=== PATIENT | male | born 1990 | race Caucasian/White ===

== ENCOUNTER 2021-11-02 16:36 | Emergency (ER) | payer OTHER, SELFPAY ==
--- NOTE | ~2021-11-02 | XR_ITS ---
EXAMINATION: XR elbow RT min 3V EXAM DATE: 11/02/2021 20:30 INDICATION: Fall X 1 Wk Ago,Red Swelling Pain In Rt Elbow. Initial encounter. TECHNIQUE: Right elbow frontal, lateral with flexion, and oblique projections obtained and reviewed. There is no prior study for comparison. FINDINGS: Right elbow anterior humeral line intact. There is swelling over the posterior aspect of the elbow, could be olecranon bursitis. Possible elbow joint effusion. No acute fracture line is iden tified. No dislocation. IMPRESSION: 1. Posterior swelling, possible olecranon bursitis. 2. Possible joint effusion. Reviewed, dictated and finalized at location [facility]. [employer]
[2021-11-02 17:12] VITALS: BP 147/91; PULSE 110; RESP 18; TEMP 36.9; O2SAT 99
[2021-11-02 19:30] VITALS: BP 140/89; PULSE 104; RESP 18; TEMP 37.1; O2SAT 99
[2021-11-02 20:00] VITALS: BP 150/76; PULSE 90; RESP 18; O2SAT 96
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
[2021-11-02] MEDS: CLINDAMYCIN 900 MG/D5W 50 ML 900 MG/50 ML PIGGYBACK 50 MG IVPB (22:44)
[2021-11-02 23:44] VITALS: BP 141/73; PULSE 94; RESP 18; O2SAT 99
== END 2021-11-02 23:53 | disposition home or self-care (01) ==
PROVIDERS: Emergency Provider Emergency Medicine; PCP Nurse Practitioner Family
DX: L03.113 Cellulitis of right upper limb (principal); M71.9 Bursopathy, unspecified
CPT/HCPCS: 73080; 96365; 99284

== ENCOUNTER 2022-01-27 19:20 | Observation (INO) | payer OTHER, SELFPAY ==
[2022-01-27] VITALS (7 sets, daily range): BP systolic 129–143; BP diastolic 83–93; PULSE 68–85; RESP 14–22; TEMP 36.7–37.4; O2SAT 95–100; BMI 25.0
--- NOTE | ~2022-01-27 | CT_ITS ---
EXAMINATION: CT brain wo con DATE: 01/28/2022 12:52 INDICATION: Agitation, cognitive impairment, destructive behavior. TECHNIQUE: Computed tomography (CT) of the head was performed without intravenous contrast. The mA wa s adjusted according to patient size. Iterative reconstruction technique was employed. Exam dose: 60 5.33 mGy-cm total exam DLP. COMPARISON: None FINDINGS: Examination is limited by motion artifact. Moderate cerebral volume loss. Multiple old infarcts are noted including left temporal lobe, posteromedial left occipital lobe and p arasagittal left frontal and parietal lobes Status post left craniotomy. No intracranial mass lesion or hemorrhage or recent cerebrovascular accident is evident. No midline s hift or mass effect effect. No subdural or epidural hematoma. No orbital mass lesion is evident. Included paranasal sinuses and the mastoid air cells are normally developed and aerated. 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 Reviewed, dictated and finalized at location [facility].
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
[2022-01-27 20:50] LABS: Basophils Absolute Auto 0.1 K/mm3 (0.0-0.1); Basophils Percent Auto 0.7 % (0.2-1.2); Eosinophils Absolute Auto 0.1 K/mm3 (0-0.3); Eosinophils Percent Auto 0.7 % (0-4.4); Hematocrit 42.6 % (42.0-52.0); Hemoglobin 13.9 g/dL (14.0-18.0); Immature Granulocyte Absolute 0.01 K/mm3 (0.00-0.031); Immature Granulocyte Percent A 0.1 % (0-0.5); Lymphocytes Absolute Auto 3.41 K/mm3 (0.9-3.2); Lymphocytes Percent Auto 48.9 % (18.3-44.2); Mean Corpuscular HGB Conc 32.6 g/dl (32-36); Mean Corpuscular Volume 88.9 fl (80-100); Mean Platelet Volume 9.4 fl (7.4-10.4); Monocytes Absolute Auto 0.5 K/mm3 (0.1-0.6); Monocytes Percent Auto 7.6 % (2.6-8.5); Neutrophils Absolute Auto 2.9 K/mm3 (1.3-6.7); Platelet Count Result 184 k/mm3 (150-375); Red Blood Count 4.79 M/mm3 (4.6-6.20); Red Cell Distribution Width 12.2 % (11.5-14.5)
[2022-01-27 20:52] LABS: Add Urine Microscopic? NO; Appearance Urine Clear (Clear); Bilirubin Urine Negative (Negative); Blood Urine Negative (Negative); Color Urine Straw (Yellow); Glucose Urine UA Negative (Negative); Ketones Urine Negative (Negative); Leukocyte Esterase Ur Negative LEU/UL (Negative); Nitrate Urine Negative (Negative); Protein Urine Negative (Negative); Specific Grav Ur 1.011 (1.001-1.035); Urobilinogen Urine Negative mg/dL (<2.0)
[2022-01-27 20:59] LABS: Alanine Aminotransferase 24 U/L (4-50); Albumin Level 4.1 g/dL (3.5-5.1); Alkaline Phosphatase 69 U/L (38-126); Anion Gap 6 mmol/L (8-16); Aspartate Amino Transferase 30 U/L (17-59); Bilirubin,Total 0.1 mg/dL (0.2-1.3); Blood Urea Nitrogen 17 mg/dL (9-20); Calcium 8.7 mg/dL (8.4-10.2); Carbon Dioxide 28 mmol/L (22-30); Chloride 108 mmol/L (98-107); Estimated CRCL calculation 135 ml/min; Estimated Glomerular Filt Rate > 60; Glucose 110 mg/dL (65-110); Potassium 3.4 mmol/L (3.4-5.0); Sodium 142 mmol/L (137-145)
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
--- NOTE | 2022-01-27 22:00 | PC.NURSE ---
EDER verbal order to not place IV due to no medical need. management information systems director made aware. Jyoti Roach RN made aware.
[2022-01-28 06:00] VITALS: BP 137/86; PULSE 71; RESP 16; TEMP 37.1; O2SAT 98
[2022-01-28] MEDS: SERTRALINE HCL 50 MG TABLET 100 MG PO (08:03)
[2022-01-28] MEDS: MULTIVITAMINS THERAPEUTIC TAB (*BKC) 1 TABLET PO (08:04)
[2022-01-28 08:14] VITALS: O2SAT 99
[2022-01-28] MEDS: ACETAMINOPHEN 325 MG TABLET 650 MG PO (08:28)
[2022-01-28] MEDS: DIVALPROEX SODIUM DR 250 MG TABEC 500 MG PO ×2 (08:29→16:57)
--- NOTE | 2022-01-28 10:30 | PCOTNOTE ---
Spoke with hospitalist and nursing, who requested canceling of orders Pt. is at baseline and does not require OT/PT services at this level of care.
--- NOTE | 2022-01-28 11:43 | ECG_ITS ---
Measurements Intervals [place] Rate: 63 P: 62 ME: 168 QRS: -26 QRSD: 106 T: 54 QT: 408 QTc: 419 Interpretive Statements SINUS RHYTHM WITH SINUS ARRHYTHMIA LEFT AXIS DEVIATION [QRS AXIS < -20] BORDERLINE ECG NO PREVIOUS ECG AVAILABLE FOR COMPARISON Electronically Signed On 01-28-2022 12:53:14 CDT by Howard Crooks M.D.
[2022-01-28 12:04] LABS: Cholesterol 149 mg/dL (0-200); HDL Direct 25 mg/dL; Triglycerides 181 mg/dL (<150)
[2022-01-28 12:15] LABS: LDL Cholesterol Direct 115 mg/dL
[2022-01-28 12:22] LABS: Rapid Plasma Reagin Non-Reactive (NonReactive)
[2022-01-28 12:24] LABS: Vitamin D 25 Hydroxy 60.7 ng/mL
[2022-01-28 12:36] LABS: Hepatitis B Surface Antigen Negative (Negative)
[2022-01-28 12:42] LABS: HAV RESULT Negative (Negative); Hepatitis B Core IgM Result Negative (Negative)
[2022-01-28 12:45] LABS: HIV 1/2 Ab P24 Ag Result Negative (Negative)
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
[2022-01-28 12:55] LABS: Hepatitis C Virus Antibody Reactive (Negative)
[2022-01-28 13:11] LABS: Folic Acid 15.8 ng/mL (2.76->20)
[2022-01-28 14:00] VITALS: BP 128/91; PULSE 85; RESP 18; TEMP 36.9; O2SAT 97
[2022-01-28] MEDS: traZODone HCL 50 MG TABLET 150 MG PO (20:57)
[2022-01-28 21:25] VITALS: BP 134/89; PULSE 75; RESP 18; TEMP 36.5; O2SAT 96
[2022-01-29 05:54] VITALS: BP 130/75; PULSE 67; RESP 18; TEMP 36.1; O2SAT 98
[2022-01-29] MEDS: DIVALPROEX SODIUM DR 250 MG TABEC 500 MG PO ×2 (08:55→16:27)
[2022-01-29] MEDS: SERTRALINE HCL 50 MG TABLET 100 MG PO (08:55)
[2022-01-29] MEDS: MULTIVITAMINS THERAPEUTIC TAB (*BKC) 1 TABLET PO (08:56)
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
[2022-01-29 13:53] VITALS: O2SAT 97
[2022-01-29 14:00] VITALS: BP 130/88; PULSE 89; RESP 18; TEMP 36.3; O2SAT 95
[2022-01-29] MEDS: traZODone HCL 50 MG TABLET 150 MG PO (20:33)
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
[2022-01-29 21:30] VITALS: BP 133/85; PULSE 73; RESP 18; TEMP 36.8; O2SAT 98
[2022-01-29] MEDS: ACETAMINOPHEN 325 MG TABLET 650 MG PO (21:33)
[2022-01-29] MEDS: OLANZapine 5 MG TABLET PO (21:43)
[2022-01-30 05:46] VITALS: BP 128/91; PULSE 72; RESP 18; TEMP 36.4; O2SAT 98
[2022-01-30] MEDS: IBUPROFEN 400 MG TABLET PO (06:08)
[2022-01-30 07:04] LABS: Valproic Acid 51.6 ug/mL (50-120)
[2022-01-30] MEDS: DIVALPROEX SODIUM DR 250 MG TABEC 500 MG PO ×2 (09:09→16:44)
[2022-01-30] MEDS: MULTIVITAMINS THERAPEUTIC TAB (*BKC) 1 TABLET PO (09:09)
[2022-01-30] MEDS: SERTRALINE HCL 50 MG TABLET 100 MG PO (09:09)
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
[2022-01-30 12:40] LABS: Anion Gap 6 mmol/L (8-16); Blood Urea Nitrogen 16 mg/dL (9-20); Calcium 8.8 mg/dL (8.4-10.2); Carbon Dioxide 32 mmol/L (22-30); Chloride 104 mmol/L (98-107); Estimated CRCL calculation 121 ml/min; Estimated Glomerular Filt Rate > 60; Glucose 65 mg/dL (65-110); Potassium 3.8 mmol/L (3.4-5.0); Sodium 142 mmol/L (137-145)
[2022-01-30 14:00] VITALS: BP 126/82; PULSE 74; RESP 18; TEMP 37; O2SAT 96
[2022-01-30] MEDS: traZODone HCL 50 MG TABLET 150 MG PO (20:10)
[2022-01-30] MEDS: ACETAMINOPHEN 325 MG TABLET 650 MG PO (20:11)
[2022-01-30] MEDS: OLANZapine 5 MG TABLET PO (20:11)
[2022-01-30 22:00] VITALS: BP 116/86; PULSE 76; RESP 18; TEMP 36.9; O2SAT 96
[2022-01-31 06:00] VITALS: BP 138/82; PULSE 53; RESP 16; TEMP 36; O2SAT 99
[2022-01-31] MEDS: SERTRALINE HCL 50 MG TABLET 100 MG PO (09:17)
[2022-01-31] MEDS: MULTIVITAMINS THERAPEUTIC TAB (*BKC) 1 TABLET PO (09:17)
[2022-01-31] MEDS: DIVALPROEX SODIUM DR 250 MG TABEC 500 MG PO ×2 (09:17→16:55)
[2022-01-31 12:54] LABS: Hepatitis C RNA, Quant PCR <15 IU/mL
[2022-01-31 14:00] VITALS: BP 145/96; PULSE 85; RESP 18; TEMP 37; O2SAT 100
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
[2022-01-31] MEDS: traZODone HCL 50 MG TABLET 150 MG PO (20:23)
[2022-01-31] MEDS: OLANZapine 5 MG TABLET PO (20:29)
[2022-01-31 22:00] VITALS: BP 128/79; PULSE 66; RESP 18; TEMP 36.1; O2SAT 98
[2022-02-01 06:00] VITALS: BP 128/82; PULSE 66; RESP 18; TEMP 36.4; O2SAT 100
[2022-02-01] MEDS: MULTIVITAMINS THERAPEUTIC TAB (*BKC) 1 TABLET PO (09:25)
[2022-02-01] MEDS: SERTRALINE HCL 50 MG TABLET 100 MG PO (09:25)
[2022-02-01] MEDS: DIVALPROEX SODIUM DR 250 MG TABEC 500 MG PO ×2 (09:25→17:57)
[2022-02-01] MEDS: ACETAMINOPHEN 325 MG TABLET 650 MG PO ×2 (13:02→19:58)
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
[2022-02-01 14:00] VITALS: BP 144/91; PULSE 90; RESP 18; TEMP 36.8; O2SAT 98
[2022-02-01] MEDS: OLANZapine 5 MG TABLET PO (19:58)
[2022-02-01] MEDS: traZODone HCL 50 MG TABLET 150 MG PO (19:58)
[2022-02-01 21:40] VITALS: BP 125/71; PULSE 78; RESP 18; TEMP 36.4; O2SAT 98
[2022-02-02 07:59] VITALS: O2SAT 97
[2022-02-02 08:00] VITALS: PULSE 78; RESP 18; O2SAT 97
[2022-02-02] MEDS: SERTRALINE HCL 50 MG TABLET 100 MG PO (08:32)
[2022-02-02] MEDS: MULTIVITAMINS THERAPEUTIC TAB (*BKC) 1 TABLET PO (08:32)
[2022-02-02] MEDS: DIVALPROEX SODIUM DR 250 MG TABEC 500 MG PO ×2 (08:32→16:20)
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
[2022-02-02] MEDS: ACETAMINOPHEN 325 MG TABLET 650 MG PO ×2 (11:58→21:40)
[2022-02-02 14:00] VITALS: BP 139/76; PULSE 94; RESP 19; TEMP 36.4; O2SAT 99
[2022-02-02] MEDS: traZODone HCL 50 MG TABLET 150 MG PO (20:21)
[2022-02-02] MEDS: OLANZapine 5 MG TABLET PO (20:22)
[2022-02-02 21:39] VITALS: BP 149/81; PULSE 75; RESP 16; TEMP 36.3; O2SAT 98
[2022-02-03 05:33] VITALS: BP 129/68; PULSE 60; RESP 16; TEMP 36.1; O2SAT 98
[2022-02-03] MEDS: SERTRALINE HCL 50 MG TABLET 100 MG PO (10:28)
[2022-02-03] MEDS: DIVALPROEX SODIUM DR 250 MG TABEC 500 MG PO ×2 (10:28→18:12)
[2022-02-03] MEDS: MULTIVITAMINS THERAPEUTIC TAB (*BKC) 1 TABLET PO (10:28)
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
[2022-02-03 14:00] VITALS: BP 142/82; PULSE 81; RESP 18; TEMP 37; O2SAT 98
[2022-02-03 16:53] LABS: Valproic Acid 53.8 ug/mL (50-120)
[2022-02-03] MEDS: traZODone HCL 50 MG TABLET 150 MG PO (21:10)
[2022-02-03] MEDS: OLANZapine 5 MG TABLET PO (21:11)
[2022-02-03 22:00] VITALS: BP 136/97; PULSE 75; RESP 18; TEMP 36.2; O2SAT 98
[2022-02-04 06:00] VITALS: BP 117/80; PULSE 66; RESP 18; TEMP 36.4; O2SAT 100
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
[2022-02-04] MEDS: MULTIVITAMINS THERAPEUTIC TAB (*BKC) 1 TABLET PO (09:10)
[2022-02-04] MEDS: SERTRALINE HCL 50 MG TABLET 100 MG PO (09:10)
[2022-02-04] MEDS: DIVALPROEX SODIUM DR 250 MG TABEC 500 MG PO (09:11)
== END 2022-02-04 13:00 | disposition home or self-care (01) ==
LOC: ANHED 19:42 → ANH3MEDSUR 22:45
PROVIDERS: Physician Assistant; Psychiatry & Neurology Psychiatry; Admitting Provider Internal Medicine; Emergency Provider Nurse Practitioner Family; PCP Nurse Practitioner Family; Visit Provider Nurse Practitioner
DX: R41.9 Unspecified symptoms and signs involving cognitive functions and awareness (principal); R46.89 Other symptoms and signs involving appearance and behavior; M21.371 Foot drop, right foot; R76.8 Other specified abnormal immunological findings in serum; Z87.820 Personal history of traumatic brain injury; E78.1 Pure hyperglyceridemia; Z79.899 Other long term (current) drug therapy; Z11.4 Encounter for screening for human immunodeficiency virus [HIV]
CPT/HCPCS: 36415; 70450; 80048; 80053; 80061; 80074; 80164; 81003; 82306; 82607; 82746; 84443; 85025; 86592; 86703; 87522; 93005; 99285; A9270; G0378; G0432

== ENCOUNTER 2022-03-11 13:45 | Emergency (ER) | payer OTHER, SELFPAY ==
[2022-03-11 13:47] VITALS: BP 147/87; PULSE 76; RESP 14; TEMP 36.6; O2SAT 98
[2022-03-11] MEDS: AMOXICILLIN/CLAVULANATE K 875-125 MG TAB 1 TABLET PO (15:09)
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
[2022-03-11] MEDS: TETANUS,DIPHTHERIA,AC PERTUSSIS ADULT (0.5 ML) BOOSTRIX IM (16:28)
[2022-03-11 16:37] VITALS: RESP 16
== END 2022-03-11 16:39 | disposition home or self-care (01) ==
PROVIDERS: Emergency Provider Nurse Practitioner Family; PCP Nurse Practitioner Family
DX: S01.551A Open bite of lip, initial encounter (principal); Z23 Encounter for immunization; F90.9 Attention-deficit hyperactivity disorder, unspecified type; F41.9 Anxiety disorder, unspecified; F32.A Depression, unspecified; Z87.820 Personal history of traumatic brain injury; W54.0XXA Bitten by dog, initial encounter
CPT/HCPCS: 12011; 90471; 90715; 99283; A9270

== ENCOUNTER 2023-06-06 20:33 | Emergency (ER) | payer OTHER, SELFPAY ==
--- NOTE | ~2023-06-06 | CT_ITS ---
EXAMINATION: CT facial bones wo con DATE: 06/06/2023 21:54 INDICATION: nasal injury . TECHNIQUE: Computed tomography (CT) of the facial bones and maxillofacial region was performed withou t intravenous contrast. Automated exposure control and iterative reconstruction technique were employ ed. The dose-length product was 628.89 mGy-cm. COMPARISON: None. FINDINGS: Soft Tissues: Nasal laceration, apparently involving the soft tissue septum. Soft tissue contusions over the right cheek. Facial bones: Nondisplaced right nasal bone fracture. No lytic or blastic process. Partially visuali zed left craniotomy defect. Eyes: The globes are intact. The soft tissue planes of the orbits are maintained. Possible left shireen s replacement. Paranasal Sinuses: The visualized aerated spaces are clear. Foreign Bodies: No radiopaque foreign bodies. Other Findings: None. IMPRESSION: Nondisplaced right nasal bone fracture. Nasal laceration involving the soft tissue septum. Reviewed, dictated and finalized at location K. IMPRESSION: Nondisplaced right nasal bone fracture. Nasal laceration involving the soft tis ave septum.
--- NOTE | ~2023-06-06 | CT_ITS ---
EXAMINATION: CT brain wo con DATE: 06/06/2023 21:54 INDICATION: head injury . TECHNIQUE: Computed tomography (CT) of the head was performed without intravenous contrast. The mA wa s adjusted according to patient size. Iterative reconstruction technique was employed. The dose-lengt h product was 681.00 mGy-cm. COMPARISON: 01/28/2022. FINDINGS: No acute intracranial hemorrhage or extra-axial fluid collection. No hydrocephalus, mass, or herniation. No acute ischemic infarct. Unremarkable dural venous sinus attenuation. No acute osseous abnormality. Left frontotemporal parietal craniotomy defect. The aerated spaces are clear. Left temporal lobe encephalomalacia/surgical defect. Left parasagittal frontoparietal and left medial occipital encephalomalacia. Ex vacuo dilation of the left ventricle. Possible left lens replacement. IMPRESSION: No acute intracranial process. Reviewed, dictated and finalized at location K.
[2023-06-06 21:08] VITALS: BP 158/74; PULSE 76; RESP 18; TEMP 36.5; O2SAT 99
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
[2023-06-06] MEDS: CLINDAMYCIN 600 MG/D5W 50 ML 600 MG/50 ML PIGGYBACK 100 MG IVPB (22:18)
--- NOTE | 2023-06-06 23:46 | WPDPROCEDUR ---
Procedures Laceration Laceration 1: Procedure be repair of nasal laceration. Would be about 6 cm total all the right maxillary skin onto the nasal ala into the nose itself the nose was lifted almost like a trans columellar incision looked throughout the septum. Consent was obtained. The wound was anesthetized with 3 cc 1% lidocaine 1 100,000 parts of epinephrine. Wound was then copiously irrigated irrigated with 500 cc sterile normal saline. The deep layers closed with mattressed 4-0 Vicryl sutures I was able to get to in between the septum and columellar skin and 1 on the lateral nasal wall ala. the intranasal portion was then closed with 4 inner 4-0 chromic interrupted. The skin was closed with 5 0 fast gut. Mupirocin was placed over the entire wound. Patient tolerated the procedure well no blood loss.
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
== END 2023-06-07 00:21 | disposition home or self-care (01) ==
PROVIDERS: Emergency Provider Emergency Medicine; PCP Internal Medicine
DX: S01.21XA Laceration without foreign body of nose, initial encounter (principal); S02.2XXA Fracture of nasal bones, initial encounter for closed fracture; W06.XXXA Fall from bed, initial encounter
CPT/HCPCS: 13152; 70450; 70486; 96365; 99284